=== PATIENT | female | born 1975 | race Caucasian/White ===

== ENCOUNTER 2020-07-21 23:40 | Inpatient (IN) | payer SELFPAY ==
[2020-07-21 23:45] VITALS: BP 154/104; PULSE 130; RESP 18; TEMP 36.8; O2SAT 96; BMI 28.7
--- NOTE | 2020-07-21 23:49 | ECG_ITS ---
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 Measurements Intervals [place] Rate: 116 P: 41 SC: 149 QRS: -10 QRSD: 89 T: 55 QT: 344 QTc: 480 Interpretive Statements SINUS TACHYCARDIA POSSIBLE ANTERIOR MYOCARDIAL INFARCTION , PROBABLY OLD [30 ms Q WAVE IN V3/V4, OR R < 0.2 mV IN V4] No previous ECG available for comparison Electronically Signed On 07-22-2020 11:44:20 [employer] by Suzan Sarabia M.D. [id number]
--- NOTE | 2020-07-21 23:56 | W.ED.PSYCH ---
HPI - Psych General: Chief Complaint: Psychiatric Symptoms Stated Complaint: BRI PULLIAM Time Seen by Provider: 07/21/20 23:49 Source: patient Mode of arrival: ambulatory Limitations: no limitations History of Present Illness: HPI Narrative: 45-year-old female with a history of bipolar disorder has been out of her medications for approximately 9 months after losing her insurance. Over the past week she has had increasing suicidal ideations, anxiety, difficulty sleeping, as well as auditory hallucinations. She states that she may have been exposed to meth during the last week by accident. Denies alcohol use. She is a diabetic, had been on Metformin, but stopped taking that along with her other medications when she lost insurance. She reports that her psychiatric symptoms were relatively well controlled on lithium in the past. She was tried on Seroquel, but did not tolerated. She currently lives with her boyfriend, their relationship is stable and supportive. She says that she has had suicide attempts in the past by overdosing on pills, or trying to drown herself. She has no specific plan to hurt herself at this time, but says that is why she came here to get help before she became more suicidal. complaint: suicidal ideation and feels depressed Onset (ago): day(s) Duration: constant Associated symptoms: Reports auditory hallucinations, depression and suicidal ideation Review of Systems General: Reports: 10 or more systems reviewed and unremarkable except in HPI and below Const: Reports: fatigue, malaise and change in sleep pattern; Denies: fever(s), chills or body aches Eyes: Denies: change in vision, blurry vision or blind spots ENMT: Denies: odynophagia, hoarseness or mouth pain Card: Reports: palpitations; Denies: chest pain, swelling of feet/ankles or lightheadedness Resp: Denies: dyspnea, productive cough or wheezing GI: Denies: abdominal pain, nausea, vomiting or hematemesis : Denies: difficulty voiding or dysuria Musc: Denies: neck pain, back pain or extremity pain Skin/Breast: Denies: rash, pruritus or erythema Neuro: Denies: headache(s), numbness in extremities or weakness in extremities Psych: Reports: anxiety, depression, mood swings, sleeping less, hopelessness, loss of interest, change in appetite, irritability, memory loss, difficulty concentrating, auditory hallucinations and suicidal ideation Agustín/Lymph: Denies: easy bruising or easy bleeding [facility] ED Female Reproductive History: Date of last menstrual period: 07/05/20 Physical Exam Const: COMMON NORMALS: no acute distress, average body habitus and patient oriented x3 GENERAL APPEARANCE: anxious; not in distress and not ill appearing ORIENTATION/CONSCIOUSNESS: Yes awake, Yes oriented to person, Yes oriented to place and Yes oriented to time HENMT: COMMON NORMALS: normocephalic and atraumatic HEAD & SCALP: normocephalic and atraumatic FACE & SINUS: normal facial exam and face symmetric Eye: COMMON NORMALS: Equal, round and reactive pupils present, EOMs intact bilaterally, conjunctivae normal and no scleral icterus GENERAL EYE: appearance normal, both eyes and all related structures ALIGNMENT: Yes alignment normal CONJUNCTIVA: Yes conjunctivae normal PUPIL: Yes Equal, round and reactive pupils present Neck/C-Spine: COMMON NORMALS: full ROM, no lymphadenopathy and supple Lymph: LYMPHATIC: no lymphadenopathy noted Resp: COMMON NORMALS: normal respiratory effort and No use of accessory muscles EFFORT & INSPECTION: Yes able to speak in complete sentences, No tachypneic and No respiratory distress Cardio: COMMON NORMALS: regular rate, S1 normal heart sound present and S2 normal heart sound present RATE: regular rate and tachycardic HEART SOUNDS: S1 normal heart sound present and S2 normal heart sound present GI: COMMON NORMALS: Normal to inspection, nondistended, normoactive bowel sounds present, Soft to palpation, non-tender and No hepatosplenomegaly present PALPATION: Yes Soft to palpation and Yes No hepatosplenomegaly present Extremity: COMMON NORMALS: normal to inspection, full ROM, capillary refill normal and no clubbing, cyanosis or edema Neuro: COMMON NORMALS: patient oriented x3, moves all extremities, no focal motor deficits and no sensory deficits noted SENSORIUM/ORIENTATION: Yes oriented to person, Yes oriented to place and Yes oriented to time Psych: COMMON NORMALS: Normal thought process present, cooperative and speech normal APPEARANCE: Yes grossly normal ATTITUDE: Yes calm ACTIVITY/MOTOR BEHAVIOR: Yes appropriate eye contact, Yes fidgeting and Yes restless SPEECH: Yes normal speech MOOD & AFFECT: Yes depressed mood, Yes anxious, Yes sad and Yes tearful THOUGHT PROCESS: Normal thought process present THOUGHT CONTENT: Yes Normal thought content present ATTENTION/CONCENTRATION: Yes attention grossly intact MEMORY/COGNITION: Yes memory grossly intact INSIGHT: Fair insight present (Psych) JUDGEMENT: Fair judgement present (Psych) Skin: COMMON NORMALS: no rashes or lesions noted GENERAL SKIN EXAM: no rashes or lesions noted RASHES: no rashes TRAUMA: no lacerations or abrasions MDM - Psych MDM Narrative: Medical decision making narrative: 45-year-old female with history of bipolar disorder, has been off of her medications and has had worsening SI and auditory hallucinations over the past week. Less likely exacerbated by recent meth use. She is tearful and anxious, but otherwise appropriate. Not responding to internal stimuli during exam. Makes good eye contact. She has a history of diabetes, has been off of Metformin. Blood sugar here is 330. Urinalysis suggests possible UTI, and with her history of diabetes we will err on the side of caution and have her complete a 4-day course of cefdinir, first dose given here. Initial heart rate was in the 130s, it trended down to 100 after being given 2 L saline bolus and IV dose of lorazepam. Tox screen positive for methamphetamines, alcohol level negative. I discussed the case with Dr. Yee, psychiatry, he accepts the admission to Neuropsych Unit for further eval and treatment. Medical Records: Attestation: I reviewed the patient's medical records. Lab Data: Attestation: I reviewed the patient's lab results. Labs: Lab Results 07/22/20 07/22/20 07/22/20 Range/Units 00:08 00:08 00:15 WBC 14.4 H (4.0-10.0) 10^3/ uL RBC 5.39 H (4.1-5.3) 10^6/u L Hgb 16.8 H (11.5-15.3) g/dL Hct 50.2 H (37.0-47.0) % MCV 93.1 (81-99) fL MCH 31.2 (28.0-34.0) pg MCHC 33.5 (30.0-36.0) g/dL RDW 12.2 (12.1-15.1) % Plt Count 378 (130-400) 10^3/c mm MPV 10.3 (7.4-10.4) fL Neut % (Auto) 67.7 % Lymph % (Auto) 25.1 % Burt % (Auto) 5.8 % Eos % (Auto) 0.6 % Baso % (Auto) 0.4 % Neut # (Auto) 9.76 H (1.8-7.7) 10^3/u L Lymph # (Auto) 3.6 (0.8-4.8) 10^3/u L Burt # (Auto) 0.8 (0.2-0.9) 10^3/u L Eos # (Auto) 0.1 (0.0-0.8) 10^3/u L Baso # (Auto) 0.1 (0.0-0.1) 10^3/u L Nucleated RBC % (a uto) 0 % Nucleated RBCs # 0.0 /100WBC Sodium 135 L (136-145) mmol/L Potassium 3.9 (3.5-5.1) mmol/L Chloride 100 (98-107) mmol/L Carbon Dioxide 23 (22-29) mmol/L Anion Gap 15.9 (5-19) BUN 11 (6-20) mg/dL Creatinine 0.5 (0.5-0.9) mg/dL GFR Calculation 133.4 H (90-130) mL/min Glucose 330 H (65-115) mg/dL Calculated Osmolal ity 292 (285-295) mOsm/k g Calcium 9.6 (8.5-10.5) mg/dL Total Bilirubin 0.4 (0.15-1.2) mg/dL AST 21 (0-32) U/L ALT 39 H (0-33) U/L Alkaline Phosphata se 95 (35-105) IU/L Creatine Kinase 48 (26-192) U/L Total Protein 8.3 (6.6-8.7) g/dL Albumin 4.7 (3.5-5.2) g/dL Globulin 3.6 (1.3-4.6) g/dL TSH 1.31 (0.27-4.20) uIU/ mL HCG, Qual Negative (Negative) Urine Color (Yellow) Urine Appearance (CLEAR) Urine pH (5-7) Ur Specific Gravit y (1.005-1.030) Urine Protein (Negative) Urine Glucose (UA) (Normal) Urine Ketones (Negative) Urine Blood (Negative) Urine Nitrate (Negative) Urine Bilirubin (Negative) Urine Urobilinogen (Negative) mg/dL Ur Leukocyte Sandy ase (Negative) Urine RBC (0-2) /hpf Urine WBC (0-5) /hpf Ur Squamous Epith Cells (0-5) /hpf Amorphous Sediment Urine Bacteria (NONE) /hpf Hyaline Casts /lpf Urine Mucus /hpf Urine Opiates Scre en (Negative) ng/mL Ur Barbiturates Sc reen (Negative) ng/mL Ur Phencyclidine S crn (Negative) ng/mL Ur Amphetamines Sc reen (Negative) ng/mL U Benzodiazepines Scrn (Negative) ng/mL Urine Cocaine Scre en (Negative) ng/mL U Marijuana (THC) Screen (Negative) ng/mL Ethyl Alcohol < 10 (0-10) mg/dL 07/22/20 07/22/20 Range/Units 00:15 00:15 WBC (4.0-10.0) 10^3/ uL RBC (4.1-5.3) 10^6/u L Hgb (11.5-15.3) g/dL Hct (37.0-47.0) % MCV (81-99) fL MCH (28.0-34.0) pg MCHC (30.0-36.0) g/dL RDW (12.1-15.1) % Plt Count (130-400) 10^3/c mm MPV (7.4-10.4) fL Neut % (Auto) % Lymph % (Auto) % Burt % (Auto) % Eos % (Auto) % Baso % (Auto) % Neut # (Auto) (1.8-7.7) 10^3/u L Lymph # (Auto) (0.8-4.8) 10^3/u L Burt # (Auto) (0.2-0.9) 10^3/u L Eos # (Auto) (0.0-0.8) 10^3/u L Baso # (Auto) (0.0-0.1) 10^3/u L Nucleated RBC % (a uto) % Nucleated RBCs # /100WBC Sodium (136-145) mmol/L Potassium (3.5-5.1) mmol/L Chloride (98-107) mmol/L Carbon Dioxide (22-29) mmol/L Anion Gap (5-19) BUN (6-20) mg/dL Creatinine (0.5-0.9) mg/dL GFR Calculation (90-130) mL/min Glucose (65-115) mg/dL Calculated Osmolal ity (285-295) mOsm/k g Calcium (8.5-10.5) mg/dL Total Bilirubin (0.15-1.2) mg/dL AST (0-32) U/L ALT (0-33) U/L Alkaline Phosphata se (35-105) IU/L Creatine Kinase (26-192) U/L Total Protein (6.6-8.7) g/dL Albumin (3.5-5.2) g/dL Globulin (1.3-4.6) g/dL TSH (0.27-4.20) uIU/ mL HCG, Qual (Negative) Urine Color Yellow (Yellow) Urine Appearance Hazy A (CLEAR) Urine pH 5 (5-7) Ur Specific Gravit y 1.025 (1.005-1.030) Urine Protein 1+ H (Negative) Urine Glucose (UA) 4+ H (Normal) Urine Ketones 1+ H (Negative) Urine Blood Neg (Negative) Urine Nitrate Positive H (Negative) Urine Bilirubin Neg (Negative) Urine Urobilinogen Norm (Negative) mg/dL Ur Leukocyte Sandy ase Negative (Negative) Urine RBC 0-4 H (0-2) /hpf Urine WBC 10-15 H (0-5) /hpf Ur Squamous Epith Cells 15-25 H (0-5) /hpf Amorphous Sediment Not Reportable Urine Bacteria 2+ H (NONE) /hpf Hyaline Casts 0-4 H /lpf Urine Mucus Trace /hpf Urine Opiates Scre en Negative (Negative) ng/mL Ur Barbiturates Sc reen Negative (Negative) ng/mL Ur Phencyclidine S crn Negative (Negative) ng/mL Ur Amphetamines Sc reen Positive H (Negative) ng/mL U Benzodiazepines Scrn Negative (Negative) ng/mL Urine Cocaine Scre en Negative (Negative) ng/mL U Marijuana (THC) Screen Negative (Negative) ng/mL Ethyl Alcohol (0-10) mg/dL EKG Data^: EKG 1: Attestation: I personally reviewed and interpreted this EKG as follows: EKG interpretation date: 02/10/21 EKG interpretation time: 00:15 Prior EKG tracings: not available for review Interpretation: Sinus tachycardia with ventricular rate of 116, LA 149, QRS 89, QTc 413, no acute ST segment elevation or depression. Normal axis. No abnormal T waves. 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
[2020-07-22] MEDS: sodium chloride 0.9% 1,000 ML 999 ML IV ×2 (00:05→02:00)
[2020-07-22 00:12] LABS: Basophils # 0.1 10^3/uL (0.0-0.1); Basophils % 0.4 %; Eosinophils # 0.1 10^3/uL (0.0-0.8); Eosinophils % 0.6 %; Hematocrit 50.2 % (37.0-47.0); Hemoglobin 16.8 g/dL (11.5-15.3); Lymphocytes # 3.6 10^3/uL (0.8-4.8); Lymphocytes % 25.1 %; Mean Corpuscular HGB Conc 33.5 g/dL (30.0-36.0); Mean Corpuscular Hemoglobin 31.2 pg (28.0-34.0); Mean Corpuscular Volume 93.1 fL (81-99); Mean Platelet Volume 10.3 fL (7.4-10.4); Monocytes # 0.8 10^3/uL (0.2-0.9); Monocytes % 5.8 %; Neutrophils # 9.76 10^3/uL (1.8-7.7); Neutrophils % 67.7 %; Nucleated Red Blood Cells % 0 %; Platelet Count 378 10^3/cmm (130-400); Red Blood Count 5.39 10^6/uL (4.1-5.3); Red Cell Distribution Width 12.2 % (12.1-15.1); White Blood Count 14.4 10^3/uL (4.0-10.0)
[2020-07-22 00:34] LABS: HCG Qualitative Urine. Negative (Negative)
[2020-07-22 00:35] LABS: Add Urine Microscopic? YES; Bilirubin Urine Neg (Negative); Blood Urine Neg (Negative); Glucose Urine UA 4+ (Normal); Ketones Urine 1+ (Negative); Leukocyte Esterase Urine Negative (Negative); Nitrate Urine Positive (Negative); Protein Urine 1+ (Negative); Specific Gravity, Urine 1.025 (1.005-1.030); Urine Appearance Hazy (CLEAR); Urine Color Yellow (Yellow); Urobilinogen Urine Norm (Negative); pH Urine 5 (5-7)
[2020-07-22 00:36] LABS: RBC Urine 0-4 /hpf (0-2)
[2020-07-22 00:37] LABS: Add Urine Culture? No; Bacteria Urine 2+ /hpf; Hyaline Casts Urine 0-4 /lpf; Mucus Urine TRACE /hpf; Squamous Epithelial Cell Urine 15-25 /hpf (0-5)
[2020-07-22 00:38] LABS: Alanine Aminotransferase 39 U/L (0-33); Albumin Level 4.7 g/dL (3.5-5.2); Alkaline Phosphatase 95 IU/L (35-105); Anion Gap 15.9 (5-19); Aspartate Amino Transferase 21 U/L (0-32); Blood Urea Nitrogen 11 mg/dL (6-20); Calcium 9.6 mg/dL (8.5-10.5); Carbon Dioxide 23 mmol/L (22-29); Chloride 100 mmol/L (98-107); Creatine Phosphokinase 48 U/L (26-192); Globulin 3.6 g/dL (1.3-4.6); Glomerular Filtration Rate 133.4 mL/min (90-130); Glucose 330 mg/dL (65-115); Osmolality Calculated 292 mOsm/kg (285-295); Potassium 3.9 mmol/L (3.5-5.1); Sodium 135 mmol/L (136-145); Thyroid Stimulating Hormone 1.31 uIU/mL (0.27-4.20); Total Bilirubin 0.4 mg/dL (0.15-1.2); Total Protein 8.3 g/dL (6.6-8.7)
[2020-07-22 00:39] LABS: Alcohol Level < 10 mg/dL (0-10)
[2020-07-22 00:39] LABS: Amphetamines Screen Urine Positive (Negative); Barbiturates Screen Urine Negative (Negative); Benzodiazepines Screen Urine Negative (Negative); Cocaine Screen Urine Negative (Negative); Opiate Screen Urine Negative (Negative); PCP Screen Urine Negative (Negative); THC Screen Urine Negative (Negative)
[2020-07-22] MEDS: LORazepam 2 mg/mL INJ 1 mL 1 MG IVP (01:10)
[2020-07-22] MEDS: cefdinir 300 MG CAPSULE PO ×2 (01:16→11:57)
[2020-07-22 02:16] VITALS: BP 127/81; PULSE 106; RESP 19; TEMP 36.6; O2SAT 95
--- NOTE | 2020-07-22 03:45 | PC.NURSE ---
i agree with this assessment
[2020-07-22 03:58] LABS: Glucose Point of Care 228 mg/dL (70-110)
[2020-07-22] MEDS: hyDROXYzine 25 mg Capsule 50 MG PO (04:56)
[2020-07-22 05:14] LABS: Estmated Average Glucose 252; Hemoglobin A1C 10.4 % (4.0-6.0)
[2020-07-22 05:59] LABS: Glucose Point of Care 251 mg/dL (70-110)
[2020-07-22 06:00] VITALS: BP 127/81; PULSE 106; RESP 19; TEMP 36.6; O2SAT 95
[2020-07-22] MEDS: metformin 500 mg Tablet PO ×2 (08:13→16:46)
--- NOTE | 2020-07-22 11:57 | PC.NURSE ---
Cefdiner was given at 1157 due to med not delivered by pharmacy. 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
[2020-07-22 13:15] LABS: Glucose Point of Care 263 mg/dL (70-110)
--- NOTE | 2020-07-22 13:33 | PM.CONSULT ---
Providers/Reason For Consult Consulting Physican/Specialty*: Darell Vizcarra MD, hospitalist Reason for Consult*: Diabetes Attending Physician: Rian Yee MD History of Present Illness History of Present Illness Chelle Mondragon is a 45 year old female with history of diabetes for many years reports she has not been taking any medications for the lately as she lost her insurance. She reports she has a little numbness in her feet but otherwise denies any significant symptoms. She denies any history of heart disease. Reports she has here at the neuropsychiatric unit for suicidal thoughts. She states she is feeling better and less depressed. She reports in the past she had some GI upset with Metformin but is willing to try that again. Review of Systems General: Reports: 10 or more systems reviewed and unremarkable except in HPI and below Const: Denies: fever(s) Eyes: Denies: change in vision ENMT: Denies: throat pain Card: Denies: chest pain Resp: Denies: dyspnea GI: Denies: abdominal pain : Denies: flank pain Musc: Denies: neck pain Neuro: Denies: headache(s) Psych: Reports: anxiety and depression Endo: Reports: tired all the time; Denies: polyuria Agustín/Lymph: Denies: easy bruising All/Imm: Denies: urticaria Meds/Allergies Home Medications and Allergies Home Medications Medication Instructions Recorded Confirmed Last Taken Type ibuprofen 200 mg PO Q6H PRN 07/22/20 07/22/20 Unknown History Allergies Allergy/AdvReac Type Severity Reaction Status Date / Time Sulfa (Sulfonamide Allergy ALGY-Hives Verified 07/21/20 23:48 Antibiotics) Current Medications Current Medications Generic Name Dose Route Start Last Admin Trade Name Freq PRN Reason Stop Dose Admin Cefdinir 300 mg 07/22/20 09:00 07/22/20 11:57 Cefdinir 300 Mg Capsule PO 07/25/20 08:59 300 mg BID CHAITANYA Administration Protocol Hydroxyzine Pamoate 50 mg 07/22/20 02:16 07/22/20 04:56 Hydroxyzine 25 Mg Capsule PO 50 mg Q6H PRN Administration ANXIETY Insulin Aspart 0 unit 07/22/20 08:00 07/22/20 08:12 Insulin Aspart 100 Unit/1 Ml SUBCUT 8 unit WM&BEDTIME CHAITANYA Administration Protocol Metformin HCl 500 mg 07/22/20 08:00 07/22/20 08:13 Metformin 500 Mg Tablet PO 500 mg BIDWM CHAITANYA Administration PFSH Acute PFSH: Medical History (Updated 07/22/20 @ 13:35 by Darell Vizcarra MD) Diabetes mellitus Surgical History (Updated 07/22/20 @ 13:35 by Darell Vizcarra MD) History of cholecystectomy History of tubal ligation Family History (Updated 07/22/20 @ 13:36 by Darell Vizcarra MD) Other Diabetes Social History (Updated 07/22/20 @ 13:36 by Darell Vizcarra MD) Smoking and tobacco status: current every day smoker Alcohol intake: never Substance/Drug Use: current Substance/Drug use type: Amphetamines Female Reproductive History: Date of last menstrual period: 07/05/20 Vitals/I&O/Wt Last Vital Signs Temp 97.9 F 07/22/20 06:00 Pulse 106 H 07/22/20 06:00 Resp 19 H 07/22/20 06:00 BP 127/81 07/22/20 06:00 Pulse Ox 95 07/22/20 06:00 07/21/20 07/22/20 07/22/20 22:59 06:59 14:59 Intake Total 1999 Balance 1999 Weight last 48 hrs Weight 85.729 kg Physical Exam Narrative: EXAM NARRATIVE: General exam is a female, no apparent distress and conversive HEENT: Atraumatic normocephalic. Pupils equally round. Oropharynx clear. Neck is supple no lymphadenopathy or thyromegaly Cardiovascular slight tachycardia, no murmur Lungs clear no wheezing or crackles Abdomen is soft with positive bowel sounds. No obvious organomegaly was deferred Extremities no cyanosis clubbing or edema, cap refill brisk Skin no rash Neuro no obvious focal deficits Data Other Data: Other data: Hemoglobin A1c 10.4 Urinalysis with 10-15 whites 15-25 squamous Urine drug screen positive for amphetamines, alcohol level less than 10 TSH 1.31 LFTs with slight elevation in ALT EKG was sinus tachycardia left axis deviation poor R wave progression A&P Assessment and plan (1) Diabetes mellitus: Significantly elevated hemoglobin A1c Metformin initiated 500 mg twice daily which is appropriate Add Januvia 100 mg daily Agree with sliding scale insulin for supplementation May need long-acting insulin such as Levemir or Lantus at night but will determine over the course of this hospitalization. Status: Acute Additional A&P Information Mild elevation of ALT. Check hepatitis panel. Abnormal urine with significant squamous cells which appears to be contaminated. Cefdinir was started from the emergency department. This may be discontinued, and monitoring of symptoms may occur. Mental health disorder which she describes as bipolar disorder. Management per psychiatry. Thank you for this consultation. 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
[2020-07-22 14:00] VITALS: BP 95/60; PULSE 82; RESP 18; TEMP 36.3; O2SAT 97
[2020-07-22] MEDS: sitagliptin 100 mg Tablet PO (15:09)
[2020-07-22 15:50] LABS: Hepatitis A Antibody IgM Non-Reactive (Nonreactive); Hepatitis B Core IgM Non-Reactive (Nonreactive); Hepatitis B Surface Antigen Non-Reactive (Nonreactive); Hepatitis C Virus Antibody Non-Reactive (Nonreactive)
[2020-07-22 16:05] LABS: Glucose Point of Care 236 mg/dL (70-110)
[2020-07-22] MEDS: nicotine 21 mg Patch 1 PATCH TRANSDERMA (16:46)
--- NOTE | 2020-07-22 18:54 | PM.NHP ---
Providers/Chief Complaint Admitting Physician: Rian Yee MD Chief Complaint: BRI PULLIAM HPI NPU History of Present Illness Chelle Mondragon is a 45 year old female who presented to the emergency department with the following report: Chief Complaint: Psychiatric Symptoms Stated Complaint: BRI PULLIAM Time Seen by Provider: 07/21/20 23:49 Source: patient Mode of arrival: ambulatory Limitations: no limitations History of Present Illness: HPI Narrative: 45-year-old female with a history of bipolar disorder has been out of her medications for approximately 9 months after losing her insurance. Over the past week she has had increasing suicidal ideations, anxiety, difficulty sleeping, as well as auditory hallucinations. She states that she may have been exposed to meth during the last week by accident. Denies alcohol use. She is a diabetic, had been on Metformin, but stopped taking that along with her other medications when she lost insurance. She reports that her psychiatric symptoms were relatively well controlled on lithium in the past. She was tried on Seroquel, but did not tolerated. She currently lives with her boyfriend, their relationship is stable and supportive. She says that she has had suicide attempts in the past by overdosing on pills, or trying to drown herself. She has no specific plan to hurt herself at this time, but says that is why she came here to get help before she became more suicidal. complaint: suicidal ideation and feels depressed Onset (ago): day(s) Duration: constant Associated symptoms: Reports auditory hallucinations, depression and suicidal ideation. She was admitted to the neuropsychiatric unit for definitive treatment of those issues. She endorsed that she was last admitted psychiatrically about 1 year ago. She reports all in all she is been admitted about 15 times. She reported that she is admitted here before in the past but she could not recall when. She also endorsed that she has not had follow-up recently but after that hospitalization a year ago she did have medications stayed on it, they were effective but then she lost her insurance and then she stopped being able to afford the medication. She dorsally about a pack of cigarettes a day, denies alcohol marijuana or any other illicit drugs. She does never going to rehab and never having a DUI. She reports that she has had about 6 suicide attempts the last one being in December with pills. She denies any clear stressor other than being off of her medication. We discussed the risk benefits alternatives of assisting her in dealing with her depression and anxiety by starting medication and she understood and agreed to proceed as is documented in this note. And she was insistent that we consider the one she had been on in the past because they were effective but she could not recall what they were. She endorsed that she would be willing to assist us in finding out those medications the only one she can recall was Klonopin and possibly lithium but then she could not remember if the lithium was added. She endorsed getting some of that treatment through our system and an excerpt of the only note that I found in our system is included below for context and her limited history telling. Per her 12/15/2015 [facility] [place]: Date of Service: Dec 15, 2015 Chief Complaint: Suicidal ideation, severe depression, methamphetamine withdrawal symptoms. HPI: This is a 40-year-old female who avows that she has had a bad day on the planet. She apparently has been evicted from her residence and is now homeless. Her was busted by the [employer] for conspiracy to sell drugs and is now pending transfer to half-way for a minimum of 10 years. She herself has been doing meth for 10 years; she says she feels ?normal? when she does it. When she doesn?t, her symptoms sound just like a pronounced depressive episode: No energy, no self-esteem, no motivation and no ability to focus on anything important that she needs to accomplish. This may be a distorted view, in light of the fact that she is now homeless. The patient also has manic episodes but they are far less frequent than her depressive episodes. She has never been on lithium. She has never been on duloxetine, which does have some dopaminergic activity and might be useful in a case like this. The patient was brought to the emergency room profoundly depressed. She had attempted to jump out of a car in an attempt to kill herself. An affidavit was made out and she is subject to a 96-hour hold in the event that she wants to leave AGAINST MEDICAL ADVICE. By that, I mean that we can swear out a petition based on her documented suicide attempt. She also has 4 past suicide attempts in her history. In spite of this, she has never seen a psychiatrist until now that she can remember. She was ?blitzed? on quetiapine in a prior psychiatric hospital stay but she didn?t remember anything until 2 days after she was discharged. Allergies: Uncoded Allergies: SULFA DRUGS (Adverse Reaction, Severe, Anaphylaxis HIVES, 12/14/15) Active Meds: Current Hospital Medications: Medications (Trade) Dose Ordered Sig/Otis Route PRN Reason Start Time Stop Time Status Last Admin Dose Admin Lorazepam (Ativan Tab) 0.5 mg Q4H PRN PO FOR MILD ANXIETY 12/14/15 12:45 Lorazepam (Ativan Tab) 1 mg Q4H PRN PO FOR MODERATE ANXIETY 12/14/15 12:45 Lorazepam (Ativan Tab) 2 mg Q4H PRN PO FOR SEVERE ANXIETY 12/14/15 12:45 Lorazepam (Ativan Inj) 2 mg Q4H PRN IM For Severe Aggression 12/14/15 12:45 Haloperidol Lactate (Haldol Inj) 5 mg Q4H PRN IM Severe Aggression 12/14/15 12:45 Diphenhydramine HCl (Benadryl Inj) 50 mg ONCE PRN IV Severe Extrapyramidal Symptoms 12/14/15 12:45 Benztropine Mesylate (Cogentin Tab) 1 mg BID PRN PO Mild Extrapyramidal symptoms 12/14/15 12:45 Benztropine Mesylate (Cogentin Inj) 1 mg ONCE PRN IM Severe Extrapyramidal Symptom 12/14/15 12:45 Acetaminophen (Tylenol Tab) 650 mg Q4H PRN PO FOR MILD PAIN 12/14/15 12:45 Trazodone HCl (Trazodone) 50 mg HS PRN PO FOR SLEEP 12/14/15 12:45 12/14/15 21:11 Nicotine (Nicoderm Patch) 21 mg DAILY PRN TD withdrawal 12/14/15 12:45 Nicotine Polacrilex (Nicotine Gum) 2 mg Q2H PRN PO FOR WITHDRAWAL 12/14/15 12:45 12/15/15 11:06 Haloperidol (Haldol Tab) 5 mg Q4H PRN PO FOR AGITATION 12/14/15 12:45 Lorazepam (Ativan Tab) 2 mg Q4H PRN PO For Agitation 12/14/15 12:45 Home Meds: Home Medications: Medications Dose Route/Sig Days Date Category No Active Prescriptions or Reported Medications Rx Past Medical History Medical History: Reports: Psychiatric Problems (bipolar 2 disorder), Substance Abuse (daily methamphetamine for 10 years) Surgical History: Reports: Cholecystectomy, Tubal Ligation Family Medical History: Reports: Psychiatric Hx Smoke: Reports: Current Occupation: Reports: Unemployed Alcohol: Reports: None Drugs: Reports: Current (daily methamphetamine for 10 years) Marital Status: Reports: ( in [facility], pending federal half-way) Lives: Reports: Homeless Meds NPU Home Medications Medication Instructions Recorded Confirmed Last Taken Type ibuprofen 200 mg PO Q6H PRN 07/22/20 07/22/20 Unknown History Allergies Allergy/AdvReac Type Severity Reaction Status Date / Time Sulfa (Sulfonamide Allergy ALGY-Hives Verified 07/21/20 23:48 Antibiotics) PFSH NPU PFSH: Medical History (Updated 07/22/20 @ 13:35 by Darell Vizcarra MD) Diabetes mellitus Surgical History (Updated 07/22/20 @ 13:35 by Darell Vizcarra MD) History of cholecystectomy History of tubal ligation Family History (Updated 07/22/20 @ 13:36 by Darell Vizcarra MD) Other Diabetes Social History (Updated 07/22/20 @ 13:36 by Darell Vizcarra MD) Smoking and tobacco status: current every day smoker Alcohol intake: never Substance/Drug Use: current Substance/Drug use type: Amphetamines Mental Status Exam MSE Comments: This is a well-nourished, possibly overweight white female with hospital scrubs on, limited grooming and eye contact. No abnormal movements except for psychomotor retardation. Cooperative with exam in mild distress. Speech was decreased rate and volume. Mood described as depressed and anxious, affect subdued and somewhat confused. Thought process mostly organized. Thought content: Patient denied suicidal or homicidal ideation, there were no delusions reported but some paranoia was apparent, denied any auditory hallucinations. Attention and concentration were limited and memory was mostly reliable but none were formally tested. She is alert and oriented x3. Insight and judgment are limited and impulse control is fair. Vitals/I&O/Wt Last Vital Signs Temp 98.7 F 07/22/20 22:00 Pulse 84 07/22/20 22:00 Resp 18 07/22/20 22:00 BP 93/60 07/22/20 22:00 Pulse Ox 97 07/22/20 22:00 Weight last 48 hrs Weight 85.729 kg Data NPU : 07/22/20 00:08 07/22/20 00:08 A&P Assessment and plan (1) Diabetes mellitus: Status: Acute (2) Acute psychosis: Status: Acute (3) Suicidal ideation: Status: Acute (4) Drug-induced psychotic disorder: Status: Acute Qualifiers: Complication of substance-induced condition: with hallucinations Qualified Code(s): F19.951 - Other psychoactive substance use, unspecified with psychoactive substance-induced psychotic disorder with hallucinations Additional A&P Information This is a 45-year-old white female who presented to the emergency room with depression and anxiety and acute psychosis with amphetamine use identified on UDS but not endorsed by her with likely psychosis as a consequence presenting desiring help with her depression and anxiety and needing some assistance with her thought disorder and addiction. 1. Continue current medication. Could not find any information on previous medication and she was somewhat confused about that would offer antipsychotic in the morning if she was open to it or get her to identify where she last filled a prescription. Given her addiction status restarting the Klonopin is not part of the plan at least now. 2. Continue every 15 minute checks for safety. 3. Encourage individual, group and milieu therapies. 4. Encourage sober living treatment after discharge at the highest level of care to which she is willing to commit. 5. Got hospital consult for her diabetes with her A1c being 10.4. We will await recommendations and implement. Involuntary Hold Information 96 Hour Hold: 96 Hour Involuntary Admission: No Attestations NPU Medical Necessity Statement*: Inpatient hospitalization is medically necessary and the clinically appropriate intervention at this time. We will monitor medications and make changes as indicated. Patient will be in the hospital for over two midnights. Likely length of stay 3 to 5 days. 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
[2020-07-22 20:15] LABS: Glucose Point of Care 219 mg/dL (70-110)
[2020-07-22 22:00] VITALS: BP 93/60; PULSE 84; RESP 18; TEMP 37.1; O2SAT 97
[2020-07-23] MEDS: acetaminophen 325 mg Tablet 650 MG PO (05:17)
[2020-07-23 06:00] VITALS: BP 130/81; PULSE 83; RESP 18; TEMP 36.9; O2SAT 97
[2020-07-23 06:32] LABS: Glucose Point of Care 218 mg/dL (70-110)
[2020-07-23] MEDS: metformin 500 mg Tablet PO ×2 (08:28→16:38)
[2020-07-23] MEDS: sitagliptin 100 mg Tablet PO (08:28)
[2020-07-23] MEDS: pneumococcal (23 valent) SDV 0.5 mL IM (08:28)
--- NOTE | 2020-07-23 09:49 | P.PN_ITS ---
Subjective Subjective: Interval history: Chelle reports she is feeling okay. No concerns. Medications: Reviewed: Yes Vitals/I&O/Wt Last Vital Signs Temp 98.4 F 07/23/20 06:00 Pulse 83 07/23/20 06:00 Resp 18 07/23/20 06:00 BP 130/81 07/23/20 06:00 Pulse Ox 97 07/23/20 06:00 Weight last 48 hrs Weight 85.729 kg Physical Exam Narrative: EXAM NARRATIVE: General exam no apparent distress Data : 07/22/20 00:08 07/22/20 00:08 A&P Assessment and plan (1) Diabetes mellitus: Significantly elevated hemoglobin A1c Metformin initiated 500 mg twice daily which is appropriate Continue Januvia 100 mg daily Add Levemir 10 units at night Status: Acute Additional A&P Information Mild elevation of ALT.hepatitis panel checked and negative Abnormal urine with significant squamous cells which appears to be contaminated. Cefdinir was started from the emergency department. This may be discontinued, and monitoring of symptoms may occur. Mental health disorder which she describes as bipolar disorder. Management per psychiatry. Thank you for this consultation. Attestations Medical Necessity Statement*: As per primary Coding Level of Care Code Acute Product Mgr for Fallon Dougherty Diagnoses Diabetes mellitus E11.9
[2020-07-23 11:34] LABS: Glucose Point of Care 213 mg/dL (70-110)
[2020-07-23 11:34] LABS: Glucose Point of Care 186 mg/dL (70-110)
[2020-07-23] MEDS: nicotine 21 mg Patch 1 PATCH TRANSDERMA (12:10)
[2020-07-23 14:00] VITALS: BP 124/71; PULSE 91; RESP 18; TEMP 36.7; O2SAT 97
--- NOTE | 2020-07-23 15:00 | P.PN_ITS ---
Subjective NPU Subjective: Interval history: Patient reports intermittent depressive symptoms but states overall improvement, denies any interval suicidal ideation or thoughts about self-harm. Denies any interval manic symptoms. Patient reports some difficulty reporting manic symptoms outside the context of methamphetamine use which she has reported fairly regular use over the past 10 years. Denies any interval psychotic symptoms, denies any auditory or visual hallucinations. Patient reports improved appetite, improved sleep. Mental Status Exam MSE Comments: Lying in bed, calm, cooperative, interactive, good eye contact Psychomotor activity is somewhat decreased, no agitation Speech is normal rate and volume, spontaneous, clear articulation, not pressured A little better, congruent affect, not labile Alert and oriented to person, place, time, situation Memory and concentration appear to be intact per interview Thought process, linear, no flight of ideas, no looseness of associations Thought content, no delusions, no hallucinations, no suicidal or homicidal ideation Insight and judgment appear to be intact Vitals/I&O/Wt Last Vital Signs Temp 98.1 F 07/23/20 14:00 Pulse 91 07/23/20 14:00 Resp 18 07/23/20 14:00 BP 124/71 07/23/20 14:00 Pulse Ox 97 07/23/20 14:00 Weight last 48 hrs Weight 85.729 kg Data NPU : 07/22/20 00:08 07/22/20 00:08 A&P Assessment and plan (1) Depressive disorder: Status: Acute (2) Suicidal ideation: Status: Acute Additional A&P Information Patient denies any interval psychotic symptoms, reports intermittent low mood, provide some clarification with regards to past temporal relationship with manic symptoms and methamphetamine use. Patient would likely benefit from starting low-dose antidepressant targeting depressive symptoms. START citalopram 10 mg daily targeting depressive symptoms Encouraged patient to participate in unit activities to include group sessions and unit milieu Involuntary Hold Information 96 Hour Hold: 96 Hour Involuntary Admission: No Attestations NPU Medical Necessity Statement*: Requires psychiatric hospitalization for medication stabilization as well as coordination for safe discharge including psychiatric follow-up Coding Level of Care Code Acute Senior Analysis Specialist for Fallon Dougherty Diagnoses Depressive disorder F32.9 Suicidal ideation R45.851
[2020-07-23] MEDS: citalopram 20 mg Tablet 10 MG PO (16:35)
[2020-07-23 16:44] LABS: Glucose Point of Care 246 mg/dL (70-110)
[2020-07-23 19:33] LABS: Glucose Point of Care 157 mg/dL (70-110)
[2020-07-23 20:16] VITALS: BP 128/80; PULSE 80; RESP 18; TEMP 36.7; O2SAT 96
[2020-07-23] MEDS: trazodone 50 mg Tablet PO (21:10)
[2020-07-23] MEDS: hyDROXYzine 25 mg Capsule 50 MG PO (21:10)
[2020-07-24 06:00] VITALS: BP 120/76; PULSE 86; RESP 16; TEMP 36.7; O2SAT 95
[2020-07-24 06:34] LABS: Glucose Point of Care 226 mg/dL (70-110)
[2020-07-24] MEDS: metformin 500 mg Tablet PO (07:32)
[2020-07-24] MEDS: citalopram 20 mg Tablet 10 MG PO (07:33)
[2020-07-24] MEDS: sitagliptin 100 mg Tablet PO (07:34)
--- NOTE | 2020-07-24 11:49 | P.PN_ITS ---
Subjective Subjective: Interval history: Patient without complaints. Feels her sugar has improved somewhat on insulin. Medications: Reviewed: Yes Vitals/I&O/Wt Last Vital Signs Temp 98.0 F 07/24/20 06:00 Pulse 86 07/24/20 06:00 Resp 16 07/24/20 06:00 BP 120/76 07/24/20 06:00 Pulse Ox 95 07/24/20 06:00 Physical Exam Narrative: EXAM NARRATIVE: General exam no apparent distress Data : 07/22/20 00:08 07/22/20 00:08 A&P Assessment and plan (1) Diabetes mellitus: Significantly elevated hemoglobin A1c Continue Metformin and Januvia as well as Levemir. Prescription sent. Adjust Levemir as an outpatient per primary care provider. Follow-up with primary care provider in the next 4 to 7 days Patient to take blood sugar readings with her to appointment, and take blood sugar twice daily. I gave her particular instructions for hypoglycemia should this occur. Status: Acute Additional A&P Information Mild elevation of ALT.hepatitis panel checked and negative Abnormal urine with significant squamous cells which appears to be contaminated. Cefdinir was started from the emergency department. This may be discontinued, and monitoring of symptoms may occur. Mental health disorder which she describes as bipolar disorder. Management per psychiatry. I will sign off at this time Attestations Medical Necessity Statement*: As per primary Coding Level of Care Code Acute Occupational Health Nurse for Fallon Dougherty Diagnoses Diabetes mellitus E11.9
[2020-07-24 14:16] VITALS: BP 120/76; PULSE 86; RESP 16; TEMP 36.7; O2SAT 95
--- NOTE | 2020-07-24 14:22 | PM.NPTHER ---
NPU Therapy Progress Note Therapy Progress Note Date: 07/23/20 Time In: 18:00 Time Out: 18:25 Symptoms Reported: depression Mood: pleasant, sleepy (yawns frequently) Progress Note: Chelle was approached at the unit phone and is agreeable to speak, walking ADMINISTRATIVE ASSISTANT COORDINATOR back to her room. She describes very tangible goals of needing help signing up for Medicaid, Disability, and needing a cell phone. She reports hx of substance use and psychotic features. She reports taking herself to the ER mostly due to not wanting to lose the relationship with her fiance. Chelle is originally from [place], [place] and describes being involved with treatment there. She wishes to be established with care here as she britton garcia in the area. She does have employment at [employer] in [place], [place]. ADMINISTRATIVE ASSISTANT COORDINATOR attempted to direct conversation toward more emotional topics and perhaps some of the barriers to tx; however, Chelle begins to yawn quite frequently and ultimately states that she is just very tired. Intervention: ADMINISTRATIVE ASSISTANT COORDINATOR listened and provided empathy and support. [facility] services and process of intake assessment were discussed. She was encouraged to sign up for all services to receive maximum benefit in her treatment. Reported Goals Before Discharge: Stay stable on medications, complete paperwork for [facility] services
--- NOTE | 2020-07-24 14:31 | P.DS_ITS ---
Diagnoses at Discharge Discharge Diagnosis (1) Diabetes mellitus: Status: Acute Reason for Visit Reason for Visit: MHE, BRI Hospital Course Hospital Course Patient admitted to the inpatient psychiatry unit secondary to worsening suicidal ideation with psychotic symptoms in the context of positive urine drug screen for amphetamines. Patient thinks that she may have been accidentally exposed to methamphetamine. Patient continues to report some perceptual disturbances as well as depressive symptoms at the time of her initial evaluation and was continued on observation prior to starting citalopram 10 mg daily targeting her depressive symptoms. Patient is not able to report any manic or hypomanic episodes over the past 9 months that she has been off of medication. Unclear through chart review with regards to past manic episodes and the temporal relationship with the use of substances. Patient denied any suicidal ideation throughout her hospital stay and was compliant with her medication with no reports of any medication side effects. Social work coordinated for post discharge primary care follow-up to continue to evaluate and address her blood sugar control. Patient participated in unit activities to include group sessions and unit milieu with no reports of any behavioral disturbances. Patient was not suicidal at the time of discharge and did not appear to pose an imminent threat of harm to self or others. Low to moderate risk of harm to self or others given no current suicidal ideation and no report of any psychiatric symptoms although patient's risk may be elevated if she continues to use substances or is noncompliant with her medication or medication management follow-up leading to unexpected, impulsive behavior. Risk mitigation included psychiatric hospitalization to observe for return of any suicidal ideation or any perpetuation of perceptual disturbances as well as recommendation to abstain from the use of any substances and alcohol. Patient was able to communicate her understanding of the need to abstain from the use of substances and alcohol as well as the need for compliance with her medication, medication management follow-up in order to further mitigate her risk of harm to self and others. Involuntary Hold Information 96 Hour Hold: 96 Hour Involuntary Admission: No Mental Status Exam MSE Comments: Sitting up in her bed, polite, interactive, good eye contact Psychomotor activity is somewhat decreased, no agitation Speech is normal rate and volume, spontaneous, clear articulation, not pressured I feel good, congruent affect, not labile Alert and oriented to person, place, time, situation Memory and concentration appear to be intact per interview Thought process, linear, no flight of ideas, no looseness of associations Thought content, no delusions, no hallucinations, no suicidal or homicidal ideation Insight and judgment appear to be intact Discharge Data Data Completed and Pending: Labs from last 24 hours 07/24/20 07/23/20 07/23/20 06:02 19:29 16:33 POC Glucose 226 H 157 H 246 H Vitals: Last Vital Signs Temp 98.0 F 07/24/20 14:16 Pulse 86 07/24/20 14:16 Resp 16 07/24/20 14:16 BP 120/76 07/24/20 14:16 Pulse Ox 95 07/24/20 14:16 Discharge Plan Discharge Patient Disposition: Home Condition: Stable Prescriptions: New metformin 500 mg Tablet 500 mg PO BIDWM Qty: 60 RF: 0 Januvia 100 mg Tablet 100 mg PO DAILY Qty: 30 RF: 0 Levemir FlexTouch U-100 Insuln 100 unit/mL (3 mL) insulin pen 10 unit SUBCUT QPM Qty: 3 RF: 0 (DME) Blood Glucose Monitoring Kit See Rx Instructions .ROUTE .MEDSUPPLY Qty: 1 RF: 0 citalopram 20 mg Tablet 10 mg PO DAILY Qty: 30 RF: 0 Discontinued ibuprofen 200 mg Tablet 200 mg PO Q6H PRN (Reason: Fever Or Pain) RF: 0 Discharge Orders: Discharge Order (Routine); Ordered 07/24/20 Ordered By: Arthur De La O [place] [facility] [place]] Kelly Akhtar FNP [Nurse Practitioner] - 07/29/20 10:15 am (You have an appointment for new patient establishment with Kelly HEWITT on July 29 at 10:15 AM. ) Discharge Diet: Diabetic Discharge Activity: Resume usual activity Activity Restrictions/Additional Instructions: Follow-up with your primary care provider and bring sugars with you to appointment. Take your sugar fasting before breakfast, and at night before going to bed Discharge Attestations NPU Time Spent in Discharge Care*: greater than 30 min Status at Discharge: Cognitive status at discharge: cognitively intact , Behavioral status at discharge: cooperative , Functional status at discharge: independent ambulation Overall status at discharge: patient is back to baseline Coding Level of Care Code Acute Dairy Helper for [facility] [place] Diagnoses Diabetes mellitus E11.9
== END 2020-07-24 15:20 | disposition home or self-care (01) | DRG 897 ==
LOC: ER 23:53 → NP 07-22 02:57
PROVIDERS: Internal Medicine; Admitting Provider Psychiatry & Neurology Psychiatry; Emergency Provider Family Medicine; Visit Provider Psychiatry & Neurology Psychiatry
DX: F15.129 Other stimulant abuse with intoxication, unspecified (principal); R45.851 Suicidal ideations; E11.9 Type 2 diabetes mellitus without complications; F31.9 Bipolar disorder, unspecified; Z91.120 Patient's intentional underdosing of medication regimen due to financial hardship; F41.9 Anxiety disorder, unspecified; Z91.5 Personal history of self-harm; F17.210 Nicotine dependence, cigarettes, uncomplicated
CPT/HCPCS: 12345; 36415; 36416; 80053; 80074; 80306; 80307; 81001; 81025; 82550; 82962; 83036; 84443; 85025; 90471; 90686; 90732; 93005; 96372; 99284; J1815; J2060; J7030

== ENCOUNTER → 2020-09-02 09:58 | Outpatient (BNVA) | payer SELFPAY | PROVIDERS: Visit Provider Registered Nurse | DX: E11.9 Type 2 diabetes mellitus without complications (principal); F19.90 Other psychoactive substance use, unspecified, uncomplicated | CPT/HCPCS: 80053; 80061; 80307; 81000; 83036; 85025 ==